=== PATIENT | female | born 1985 | race African-American/Black ===

== ENCOUNTER 2020-12-07 03:31 | Emergency (ER) | payer OTHER ==
[2020-12-07 03:49] VITALS: BP 113/76; PULSE 93; TEMP 98.4; BMI 26.4
[2020-12-07] MEDS ORDERED: morphine SULFATE IMMEDIATE RELEASE 30 MG TAB PO ONE ×2 (03:50→04:06)
[2020-12-07] MEDS ORDERED: morphine SO4 SUSTAINED ACTING 15 MG TABLET.SA ONE (03:59)
[2020-12-07] MEDS ORDERED: morphine SULFATE IMMEDIATE RELEASE 30 MG TAB ONE (04:23)
[2020-12-07 05:34] LABS: BASO % 0.4 % (0-2.0); EOS % 0.5 % (0-4.5); HEMATOCRIT 35.1 % (32.4-45.2); HEMOGLOBIN 11.2 GM/dL (10.7-15.3); LYMPH % 23.1 % (8-40); MCH 22.6 pg (25.7-33.7); MCHC 31.9 g/dl (32.0-36.0); MEAN CELL VOLUME 70.9 fl (80-96); MONO % 11.7 % (3.8-10.2); NEUT % 64.3 % (42.8-82.8); PLATELET COUNT 257 10^3/uL (134-434); RBC 4.95 M/mm3 (3.60-5.2); RDW 15.5 % (11.6-15.6); WHITE BLOOD COUNT 8.4 K/mm3 (4.0-10.0)
== END 2020-12-07 06:33 | disposition home or self-care (01) ==
LOC: JER 03:31
DX: D25.9 Leiomyoma of uterus, unspecified (principal); N94.6 Dysmenorrhea, unspecified
CPT/HCPCS: 36415; 85025; 99283-25

== ENCOUNTER 2022-12-15 13:52 | Emergency (ER) | payer OTHER ==
[2022-12-15 13:59] VITALS: BP 131/65; PULSE 101; RESP 18; TEMP 98.4; BMI 20.9
[2022-12-15] MEDS ORDERED: ACETAMINOPHEN 500 MG TABLET (FP) ONE (15:07)
[2022-12-15] MEDS ORDERED: ACETAMINOPHEN 500 MG TABLET (FP) PO ONE (15:08)
[2022-12-15 15:14] LABS: BASO % 0.3 % (0-2.0); EOS % 0.6 % (0-4.5); HEMATOCRIT 35.9 % (32.4-45.2); HEMOGLOBIN 11.6 GM/dL (10.7-15.3); LYMPH % 30.1 % (8-40); MCH 22.2 pg (25.7-33.7); MCHC 32.3 g/dl (32.0-36.0); MONO % 13.8 % (3.8-10.2); NEUT % 55.2 % (42.8-82.8); PLATELET COUNT 340 10^3/uL (134-434); RBC 5.21 M/mm3 (3.60-5.2); RDW 13.9 % (11.6-15.6); WHITE BLOOD COUNT 7.5 K/mm3 (4.0-10.0)
[2022-12-15 15:16] LABS: EPI CELLS >36 /uL (0-25.1); HYALINE CASTS 9 /uL (0-3.1); URINE APPEARANCE CLOUDY; URINE BACTERIA 3003 /uL (0-1359); URINE BILIRUBIN NEGATIVE (NEGATIVE); URINE COLOR DK YELLOW; URINE GLUCOSE (UA) NEGATIVE (NEGATIVE); URINE KETONE 4+ (NEGATIVE); URINE LEUK ESTERASE NEGATIVE (NEGATIVE); URINE NITRITE NEGATIVE (NEGATIVE); URINE PROTEIN 1+ (NEGATIVE); URINE WBC 40 /uL (0-25.8)
[2022-12-15 15:23] LABS: POTASSIUM 3.3 mmol/L (3.5-5.1)
[2022-12-15 15:25] LABS: CALCIUM 9.8 mg/dL (8.5-10.1)
[2022-12-15 15:26] LABS: ALBUMIN 3.7 g/dl (3.4-5.0); BLOOD UREA NITROGEN 4.5 mg/dL (7-18); URINE RBC 25 /uL (0-23.9)
[2022-12-15 15:29] LABS: CREATININE 0.7 mg/dL (0.55-1.3)
[2022-12-15 15:31] LABS: BILIRUBIN,TOTAL 0.4 mg/dL (0.2-1)
[2022-12-15] MEDS ORDERED: ONDANSETRON *ODT* 4 MG TABLET SL ONE (17:19)
[2022-12-15] MEDS ORDERED: ONDANSETRON *ODT* 4 MG TABLET ONE (17:22)
== END 2022-12-15 18:03 | disposition home or self-care (01) ==
LOC: JERFT 13:52 → JER 13:52 → JERFT 18:03
DX: O26.891 Other specified pregnancy related conditions, first trimester (principal); R10.2 Pelvic and perineal pain; D25.9 Leiomyoma of uterus, unspecified; Z3A.08 8 weeks gestation of pregnancy
CPT/HCPCS: 36415; 76817-TC; 80053; 81003; 84702; 84703; 85025; 87086; 99284-25; Q0162